=== PATIENT | female | born 1980 | race Caucasian/White ===

== ENCOUNTER 2019-01-23 12:28 | Inpatient (IN) | payer BC, SELFPAY ==
--- NOTE | 2019-01-18 15:16 | EKG12_ITS ---
Test Reason : PREOP Blood Pressure : / mmHG Vent. Rate : 061 BPM Atrial Rate : 061 BPM P-R Int : 164 ms QRS Dur : 092 ms QT Int : 426 ms P-R-T Axes : 053 056 053 degrees QTc Int : 428 ms Normal sinus rhythm Normal ECG Confirmed by PORSCHE GRIDER, SUSAN ([id number]), society editor DELLA LU ([id number]) on 01/20/2019 9:32:46 AM Referred By: Edson Odom Confirmed By:SUSAN MORRELL MD
[2019-01-18 17:37] LABS: Hematocrit 38.7 % (37-47); Hemoglobin 12.5 g/dl (12.0-15.0); Mean Corp Hgb Conc 32.3 g/gl (32-36); Mean Corpuscular Volume 86.8 fL (81-99); Platelet Count 290 K/mm3 (150-450); RBC Distribution Width SD 43.4 fl (35.1-43.9); Red Blood Count 4.46 M/mm3 (4.2-5.4); White Blood Count 6.4 K/mm3 (4.4-11.0)
[2019-01-18 17:51] LABS: Scan Indicated on CBC? Y/N NO
[2019-01-18 17:53] LABS: International Normalized Ratio 1.1; Prothrombin Time (Protime)PT. 13.9 SECONDS (11.7-14.9)
[2019-01-18 17:54] LABS: Partial Thromboplast Time 33.7 Seconds (24.1-36.2)
[2019-01-18 18:32] LABS: Creatinine, Serum 0.92 mg/dL (0.55-1.02); EST Glomerular Filtration Rate 73 mL/min (>60); Est Glom Filt Rate - Afr Amer 88 mL/min (>60)
[2019-01-18 18:37] LABS: Pregnancy, Serum, hCG Quali. NEGATIVE Negative (0-9 Nonpreg)
--- NOTE | 2019-01-20 16:18 | PCM.HP.BLA ---
History and Physical Date of Admission: 01/23/19 Surgical History and Physical Sandra Bautista, a 38 year old female 1 0 0 0 1, presents for RAVH/BS on January 23, 2019 at 9:00. -- Heavy Menses, Uterine Fibroids -- Heavy, irregular periods. History regular menses always being heavy and a lot of cramping. Had Mirena IUD removed this past Wednesday12/19/18 as it was ineffective with helping the heavy flow and cramping. Had an US done on Wednesday at [facility] and was told she has fibroids. Ultrasound at [facility] showed 2 large fibroids: one 7 cm and other 4 cm likely intramural. Ovaries normal. Previous ultrasound in our office in Dec 2013 showed 7 cm pedunculated fibroid at fundus of uterus. Just wants bleeding to stop. MEDICATIONS HISTORY: Patient is also takin. No Meds ALLERGIES: Ceclor, Rash, Ceclor and Rash Infections - HPV, yeast inf and Chicken pox Illnesses - GENITAL WARTS Accidents - None Hospitalizations - TUBES IN EARS, T & A and Childbirth Review of Systems: GENERAL - Denies fever, or chills SKIN - Denies skin changes EYES - Denies visual changes EARS - Denies difficulty hearing NOSE - Denies nasal congestion or bleeding MOUTH - Denies sore throat or difficulty swallowing NECK - Denies pain or swelling RESPIRATORY - Denies shortness of breath or wheezing CARDIOVASCULAR - Denies palpitations or chest pain GASTROINTESTINAL - Denies nausea, vomiting, diarrhea, constipation GENITOURINARY - Denies dysuria, frequency of urination, incontinence of urine MUSCULOSKELETAL - Denies joint or muscle pain NEUROLOGICAL - Denies localized numbness or weakness PSYCHIATRIC - Denies depression or anxiety ENDOCRINE - Denies heat or cold intolerance, weight loss or gain HEMATO-IMMUNOLOGIC - Denies excesive bleeding with cuts SOCIAL HISTORY: Alcohol Use - denies drinking Smoking - used to smoke but quit Diet - no special diet Lifestyle - moderate stress lifestyle and single Exercise - none Seat Belt Use - always Employer - [employer] 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 Illicit Drug Use - denies use of street drugs Sexual Activity - single sexual partner Residence - rents an apartment Place of - [place], [place] Hours Worked - 40 hours per week Spouse-Sig Other Name - TERRENCE CHAVEZMAN Spouse-Sig Other Occupation - [employer] - 2nd shift Children Name(s) - Alexandr Control - NONE FAMILY HISTORY: Mother: mitral valve prolapse. Maternal Grandmother: DM I. Maternal Aunt: Colon Cancer. MENSTRUAL HISTORY: LMP Known?- DefiniteAmount/Duration - 7 days, Regularity - Regular, Frequency - monthly days, LMP - 12/21/18, Age Onset Menarche - 13 PAST PREGNANCIES: Total Pregnancies - 2; Full Term Pregnancies - 1; Premature - 0; Abortions, Induced - 0; Abortions, Spontaneous - 0; Ectopics - 0; Multiple Births - 0; Living Children - 1 SURGICAL HISTORY: . TUBES IN EARS, T & A ; - 2. D and C, 2012 ; - PHYSICAL EXAM BP- 112/75 Sitting, Right arm, large cuff Weight- 285.97105 lbs Height- 68 inch BMI:43.42 CONSTITUTIONAL - NAD, well nourished, and well developed SKIN - No rash, lesions, or ulcers HEENT - Normocephalic, PERRLA, EOMI NECK - No nodes, no nuchal rigidity and thyroid normal size and texture LYMPH NODES - Palpation of lymph nodes in neck and groins within normal limits LUNGS - CTA x2 without wheezes, crackles or rales CARDIAC - Regular rate and rhythm without rubs, murmurs, or gallops ABDOMEN - Without hepatosplenomegaly, distention, masses, rebound, or guarding; normal bowel sounds; no hernias EXTREMITIES - No edema or calf tenderness NEUROLOGICAL - Cranial nerves II-XII grossly intact PSYCHIATRIC - A and O to time, place, person, mood and affect External Genitial Vagina - non-tender without lesions Urethra/Urethral Meatus - non-tender Bladder - non-tender Vagina - vaginal hodgson are pink and moist without loss of rugae and no evidence of atropy Cervix - without cervical motion tenderness and has normal size and features without evident lesions Uterus - enlarged uterus 12 wks, wt 280-320 g and exam c/w uterine fibroids Adnexa - clear without massess or tenderness ASSESSMENT/PLAN: 1. Leiomyoma Of Uterus, Unspecified and Menometrorrhagia Extremely heavy menses in patient with longstanding fibroids and extremely heavy menses. Conservative measures not helpful. Endometrial ablation very likely to not be helpful given the large size of these fibroids. We discussed options for treatment and plan to proceed with RAVH/BS. Discussed RBAs including possible need for open procedure and all questions answered.
[2019-01-23] VITALS (14 sets, daily range): BP systolic 111–150; BP diastolic 62–86; PULSE 52–65; RESP 16–18; TEMP 36.4–37.6; O2SAT 94–99; BMI 45.2
[2019-01-23 07:38] LABS: Internal QC Validated? YES +Cl - CLEAR BKGD; Pregnancy, Urine Negative Negative
--- NOTE | 2019-01-23 09:00 | HYST_PTH ---
PATIENT: SUSIE RAI LOC: MS3 U#:[id number] AGE/SX: 38/F ROOM: MS320 RE01/23/[address]: Dr. Edson Odom MD : [id number] BED: 1 DIS: 01/25/2019 SPEC #: [id number] RECD: 01/23/19 16:07 STATUS: NAZIA GINO #: [id number] JAIME: 01/23/19 09:[address]: Edson Odom DEPT: SURGICAL PATHOLOGY RECD BY: Ilia Aggarwal ENTERED: 01/24/19 11:24 SP TYPE: HYSTERECT OTHR DR: Dr. Luis M Kaplan, DO Tissues: Uterus, NOS Procedures: Surgery Specimen Level V HEADER OPERATION: Attempted robotic assisted vaginal hysterectomy, converted to LAUREN, left salpingo-oophorectomy, right salpingectomy PRE-OP DIAGNOSIS: Leiomyoma of uterus, menometrorrhagia TISSUE SUBMITTED: Uterus, cervix, bilateral fallopian tubes, left ovary MICROSCOPIC DIAGNOSIS Uterus, hysterectomy: Cervix - nabothian cysts and chronic inflammation. Endometrium - proliferative endometrium. Myometrium - leiomyoma and adenomyosis. Right fallopian tube - no pathologic change. Left fallopian tube - no pathologic change. Left ovary - follicular and corpus luteal cysts. AM:sophy 01/25/19 MICROSCOPIC DESCRIPTION Slides are reviewed. GROSS DESCRIPTION Received in fixative is one container labeled with the patient's name and designated uterus, cervix, uterus with cervix and attached right fallopian tube and detached left fallopian tube and ovary. The body of the uterus is markedly distorted. The uterus and cervix weigh in aggregate 280 gm and measures 11 x 8 x 11 cm. The serosal surface is hogue, glistening. The ectocervical mucosa is unremarkable. The external os is oval in contour. The endocervical canal measures 3.5 cm in length and the endocervical mucosa is hogue, glistening and without any mass lesion. Sections of cervix reveal a few cysts filled with mucoid material. The endometrial cavity is compressed to one side and measures 4 cm in length and up to 2.5 cm in width. The endometrium is congested without any mass lesion and measures 0.2 cm in thickness. Sections of the anterior uterine wall reveal a hogue, nodular mass measuring 4.5 cm in diameter. Sections of this mass reveals hogue whorled cut surfaces without areas of hemorrhage, necrosis or cystic degeneration. Sections of the posterior uterine wall reveal diffusely thickened cut surfaces suspicious for adenomyosis and measures up to 4 cm in thickness. The uninvolved anterior uterine wall measures up to 2 cm in width and posterior uterine wall measures up to 4.5 cm in thickness. The right fallopian tube measures up to 0.9 cm in diameter. The fimbrial end is identified. Sections reveal unremarkable cut surfaces. The left fallopian tube measures 4 cm in length and 0.5 cm in diameter. The fimbrial end is identified. Sections reveal unremarkable cut surfaces. The detached soft to cystic left ovary measures 5 x 2.5 2.5 cm. Outer surface is smooth. Sections reveal multiple cysts filled with clear to hemorrhagic fluid. The largest cyst measures 2 cm in greatest dimension. Commission Agent [employer] sections are submitted in 12 cassettes as follows: 1 - anterior cervix, 2 - posterior cervix, 3 & 4 - anterior uterine wall, 5 & 6 - posterior uterine wall, 7 & 8 - nodular mass, 9 - more sections of posterior uterine wall containing ill-defined nodular masses, 10 - right fallopian tube, 11 - left fallopian tube and ovary, 12 - more sections of left ovary. / AXEL:sophy 01/24/19 TC:1 CPT: 18190
[2019-01-23] MEDS: Lubricating Jelly 60 GM Tube 30 GM TOPICAL (10:35)
[2019-01-23] MEDS: Ropivacaine 0.5% 30 ML Vial (11:45)
[2019-01-23] MEDS: Ketorolac 30 MG/ML Syringe IV ×2 (12:13→19:42)
--- NOTE | 2019-01-23 12:34 | PCM.DC.AHY ---
Discharge Diet: No Restrictions Discharge Activity: Return to Normal Activity - do what you feel comfortable, but do not over do it. You may climb stairs, just use caution and hold the railing., May Not Drive - for a few days or while taking narcotic pain medications., May Shower, May Take a Tub Bath May resume sexual activity in: 6 weeks - nothing in the vagina. Lifting Restrictions: 25 pounds for 6 weeks. Call your doctor if your incision/area has: Continuous Slow Oozing, Sudden Increased Bleeding, Increased Pain/ Swelling, Increased Redness, Foul Smelling Discharge Call your doctor if you observe: Fever of 101 or Higher, Inability to urinate, Inability to have a bowel movement, Using more than one pad per hour, - - Some vaginal bleeding may be noted for up to 4-8 weeks. Cleanse incision/area with: - - Let the soapy water run over your incision, rinse and pat dry. Additional Dressing/Incision Instructions:: The white strips (Steri Strips) on your incision will fall off on their own. Allergies/Adverse Reactions: Allergies cefaclor [From Ceclor] Allergy (Verified 01/16/19 13:31) Rash Medications to take at Discharge Docusate Sodium [Colace] 100 mg PO BID PRN PRN #60 cap 01/23/19 Oxycodone [Oxyir] 5 mg PO Q6H PRN PRN 7 Days #20 tab 01/23/19 The following prescriptions were given: Oxycodone [Oxyir] 5 mg PO Q6H PRN PRN 7 Days #20 tab PRN Reason: Severe Pain (6-10/10) Docusate Sodium [Colace] 100 mg PO BID PRN PRN #60 cap PRN Reason: Constipation Orders to be completed after discharge: 12 Lead EKG [CVS] Time Frame: 01/16/19, Facility: [facility], Location: Cardiovascular Services Primary Care Physician: Luis M Kaplan DO [Primary Care Provider] - Test Results: Test results from this visit will be discussed in further detail at your follow-up appointment, if applicable. Please Follow Up With: Edson Odom MD - [phone] When: in 2 weeks, please call to make an appointment.
--- NOTE | 2019-01-23 12:35 | PCM.OPRPT ---
Report of Operation Date of Procedure: 01/23/19 Pre-Operative Diagnosis: Uterine Fibroids and Menorrhagia Post-Operative Diagnosis: Urine Fibroids and Menorrhagia, Adhesions, Enlarged Left Ovary Surgery/Procedure Performed:: Attempted Robotic Assisted Vaginal Hysterectomy, Converted to Total Abdominal Hysterectomy with Left Salpingo-Oophorectomy, Right Salpingectomy, Lysis of Adhesions Description of Surgical Findings:: 7-8 cm fibroid on left side of uterus extending into right body of uterus with adhesions to the left pelvic sidewall. Left ovary enlarged to approximately 6 cm adhered to left pelvic sidewall. Rectosigmoid adhered to posterior aspect of the uterus and cervix with powder burn endometriosis implants visualized. Normal-appearing right fallopian tube and ovary. sales representative raw fibers: Ruchi Jones Type of Anesthesia:: General - Endotracheal Anesthesiologist: Larry Alonso Specimen's removed: Uterus, left fallopian tube and ovary, right fallopian tube Drains: Miller to straight drain Estimated Blood Loss (mL): 200 cc Fluids Replaced: Crystalloid Description of Procedure: Surgeon: Edson Odom MD, FACOG Indication: This is a 38 year old patient who has been having problems with menorrhagia and uterine fibroids. Conservative measures have not been helpful. The patient has been counseled regarding the risks, benefits and alternatives of this procedure including the possibility of bleeding, infection, and injury to surrounding structures such as bowel bladder and all questions were answered. She understands that is BSO is needed that she will need to be on HRT for an indefinite period of time. Procedure: Pt taken to the operating room where after induction of general anesthesia the patient was prepped and draped in the usual sterile fashion and placed on a non-slip Huggy-u-vac device. Trendendelenburg test was satisfactory. Bladder was drained of urine with a Miller catheter which was left in place. Anterior cervix grasped and cervix was dilated to about 3-4 mm. Uterus sounded to 8 cms. 0-Vicryl suture was placed at the 3:00 and 9:00 position of the cervix. A extra large V-care device was then placed in the uterus to allow uterine manipulation and attention was turned to the laparoscopic portion of the procedure. Approximately 10 cc of half percent ropivacaine was injected approximately 3 cm superior to the umbilicus. An 8 mm robotic camera port was placed directly and intraperitoneal insufflation started. At this point in the pelvis was examined with the robotic camera and it was felt that robotic hysterectomy was not feasible due to adhesions of the large uterine fibroid to the left pelvic sidewall, the rectosigmoid to the posterior aspect of the uterus, and an enlarged left ovary and fallopian tube densely adhered to the left pelvic sidewall. Normal right fallopian tube and ovary were visualized. Patient was taken out of Trendelenburg and redraped and reprepped after removing the laparoscopic port and suturing subcuticularly with 4-0 Monocryl suture. Steri-Strips were placed across this port site. Vaginal instruments were also removed except for the Miller catheter which was left in place. The abdomen was entered through a Pfannenstiel incision and peritoneal cavity was entered bluntly. [place] retractor was placed. Round ligaments were identified and ligated with 0 Vicryl suture. Adhesions were taken down with blunt dissection. Infundibulopelvic ligaments were ligated on the left and mesosalpinx on the right. A bladder flap was developed and progressive bites were then taken down on either side of the uterine cervix ligating each pedicle with 0 Vicryl suture. Final bites across the vaginal cuff incorporated the uterosacral ligaments into the vaginal cuff using 0 Vicryl suture and multiple ltughn-ie-hwghm sutures were placed across the vaginal cuff. It should be noted that the left tube and ovary were removed separate of the uterus after the uterus had been removed due to being obscured by the large uterine fibroid. Vaginal cuff and pelvic sidewall pedicles were oversewn where necessary to achieve hemostasis. Pelvis was copiously irrigated removing all clot before placing FloSeal to help with postoperative oozing from the areas of adhesions. Darron retractor was removed and rectus abdominis muscles were reapproximated in the midline with interrupted 0 Vicryl suture. 0 PDS strata fix was used to close the fascia in a running fashion and subcutaneous tissue was copiously irrigated with saline solution before closing with 3-0 Vicryl suture in 2 layers. 3-0 Monocryl suture was then used in running fashion to reapproximate skin edges area and Steri-Strips placed across the incision. Patient tolerated the procedure well was taken to recovery room in satisfactory condition; sponge instrument and needle counts were all reportedly correct. Estimated blood loss for the case was 200 cc. Cefotan 2 g IV was given prior to beginning the operative procedure. There were no apparent complications of the surgery. Specimen to pathology was uterus and bilateral fallopian tubes and left left ovary. Grafts/Implants Used: None - Complications None - Admit VTE Documentation VTE Present on Admission: Yes VTE Mechan Device Prophylaxis: SCD's VTE Pharm Prophylaxis ordered?: Yes
[2019-01-23] MEDS: Dextrose 5%-Lactated Ringers 1,000 ML 150 ML IV ×2 (14:58→21:08)
[2019-01-23] MEDS: Acetaminophen 500 MG Tablet 1000 MG PO (16:53)
--- NOTE | 2019-01-23 17:49 | CPS ---
started by nursing
[2019-01-23] MEDS: Enoxaparin 40 MG/0.4 ML Syringe SC (17:56)
[2019-01-24] VITALS (7 sets, daily range): BP systolic 116–141; BP diastolic 69–75; PULSE 53–65; RESP 16; TEMP 36.7–37.3; O2SAT 93–100
[2019-01-24] MEDS: Acetaminophen 500 MG Tablet 1000 MG PO ×2 (00:20→18:37)
[2019-01-24] MEDS: Ketorolac 30 MG/ML Syringe IV ×4 (01:47→20:23)
[2019-01-24 07:11] LABS: Hematocrit 35.6 % (37-47); Hemoglobin 11.4 g/dl (12.0-15.0); Mean Corpuscular Hgb 28.1 pg (27.0-32.0); Mean Corpuscular Volume 87.9 fL (81-99); Mean Platelet Vol. 10.7 fl (6.2-12.0); Platelet Count 296 K/mm3 (150-450); RBC Distribution Width CV 14.1 % (11.6-14.6); RBC Distribution Width SD 45.2 fl (35.1-43.9); Red Blood Count 4.05 M/mm3 (4.2-5.4); White Blood Count 12.4 K/mm3 (4.4-11.0)
[2019-01-24 07:12] LABS: Scan Indicated on CBC? Y/N NO
[2019-01-24 07:34] LABS: Creatinine, Serum 0.75 mg/dL (0.55-1.02); EST Glomerular Filtration Rate 93 mL/min (>60); Est Glom Filt Rate - Afr Amer 112 mL/min (>60); Estimated Creatinine Clearance 99.87 ml/min
--- NOTE | 2019-01-24 08:48 | PCM.PN.OB ---
Subjective: Patient without complaints. Tolerating diet well. Denies flatus. Pain well controlled. Minimal vaginal bleeding reported. Wants to go home later today if possible. - Physical Exam Vital Signs Temp Pulse Resp BP Pulse Ox 99.1 F 53 L 16 141/72 H 93 01/24/19 01:50 01/24/19 01:50 01/24/19 01:50 01/24/19 01:50 01/24/19 07:24 Oxygen Flow Rate (L/min) 1 Oxygen Delivery Method Room Air Weight: 288 lb 12.889 oz Body Mass Index (BMI) 45.2 Intake and Output for Last 24 Hours 01/22/19 01/23/19 01/24/19 23:59 23:59 23:59 Intake Total 3244 / 3244 2367 / 2367 Output Total 1000 / 1000 3025 / 3025 Balance 2244 / 2244 -658 / -658 Laboratory Tests Past 24 Hrs 01/24/19 01/24/19 06:15 06:15 WBC 12.4 H RBC 4.05 L Hgb 11.4 L Hct 35.6 L MCV 87.9 MCH 28.1 MCHC 32.0 RDW 14.1 RDW Differential 45.2 H Plt Count 296 MPV 10.7 Creatinine 0.75 Estim Creat Clear Calc 99.87 Est GFR (MDRD) Af Amer 112 Est GFR (MDRD) Non-Af 93 Wound is clean, dry, intact. Good urine output. Hemoglobin and creatinine okay. Medical Necessity - Tobacco Use Smoking Status: Former smoker Tobacco Use: Non-smoker Assessment/Plan Doing well postoperative day #1 status post total abdominal hysterectomy, left salpingo-oophorectomy, right salpingectomy. Will release home later today if shows evidence of bowel function.
[2019-01-24] MEDS: Docusate Sodium 100 MG Capsule PO (09:24)
[2019-01-24] MEDS: 0.9% NaCl Peripheral Flush Adult/Peds IV ×3 (09:26→20:23)
--- NOTE | 2019-01-24 10:45 | CASEMGMT ---
RN SONY Face to Face with patient for initial transition planning/care coordination assessment. RN CM introduced self and role at [facility]. Patient lying in bed, alert and oriented. Patient willing to participate in assessment and is able to answer all questions appropriately. Care providers, pharmacy, and demographics verified. Patient wishes to discharge home, denies need for home health at this time. Patient states she has no further needs or concerns at this time. CM to follow for discharge planning needs that may arise. PCP: Amee Specialists: None Preferred Pharmacy: [facility] Insurance: [employer] Prescription Benefit: yes Living Will/HPOA: none LNOK: Living Arrangements: Patient lives with in split level home. Patient is independent at home. Transportation: self/ DME/HHC: Cpap at home. Disposition Plan: Patient to discharge home with family support and follow-up plans in place. Felipa BRADLEY, RN, CM
[2019-01-25] MEDS: 0.9% NaCl Peripheral Flush Adult/Peds IV (01:03)
[2019-01-25] MEDS: Ketorolac 30 MG/ML Syringe IV (01:03)
[2019-01-25 01:23] VITALS: BP 138/71; PULSE 63; RESP 16; TEMP 36.7; O2SAT 100
--- NOTE | 2019-01-25 01:44 | NURSING ---
Per patient she did pass flatus.
[2019-01-25 07:15] VITALS: BP 130/71; PULSE 68; RESP 16; TEMP 36.8; O2SAT 96
== END 2019-01-25 07:20 | disposition home or self-care (01) | DRG 743 ==
LOC: SDC 13:52
PROVIDERS: Anesthesiology; Admitting Provider Obstetrics & Gynecology; Family Provider Student in an Organized Health Care Education/Training Program; PCP Student in an Organized Health Care Education/Training Program; Referring Provider Obstetrics & Gynecology; Visit Provider Obstetrics & Gynecology
PROC: 0UT90ZZ Resection of Uterus, Open Approach (ICD-10-PCS; principal; 2019-01-23 08:40)
DX: D25.9 Leiomyoma of uterus, unspecified (principal); N92.1 Excessive and frequent menstruation with irregular cycle; N73.6 Female pelvic peritoneal adhesions (postinfective); Z53.31 Laparoscopic surgical procedure converted to open procedure
CPT/HCPCS: 36415; 81025; 82565; 84703; 85027; 85610; 85730; 86850; 86900; 88307; 93005; J7120; A4216; J2405; J3475